=== PATIENT | female | born 1985 | race African-American/Black ===

== ENCOUNTER 2016-08-16 17:21 | Emergency (ER) | payer SELFPAY ==
[~2016-08-16] VITALS: Ht 170.2 cm; Wt 85.0 kg
[2016-08-16 17:22] VITALS: BP 159/95; PULSE 66; RESP 20; TEMP 98.5; O2SAT 100
--- NOTE | 2016-08-16 17:43 | PD ---
HPI Chief Complaint: Oral / Dental Pain or Problem Time Seen by Provider: 17:43 Travel History International Travel<30 days: No Contact w/Intl Traveler<30days: No Traveled to known affect area: No History of Present Illness HPI 31-year-old male presents to emergency Department with complaint of left upper tooth pain 4 weeks. Was previously treated with amoxicillin about 3-1/2 weeks ago with relief of symptoms. Tooth pain came back within the last week. She has not followed up with a dentist. She has a dental appointment when she gets back home to [place]; she is down here on vacation. Denies fever, vomiting. Denies facial edema, erythema. Has been taking ibuprofen, good powder, and other xqbu-ace-aizhnpa medications with minimal relief of pain. No known allergies. Has no medical complaints. No other modifying factors or associated signs and symptoms. PFSH Past Medical History ?: Not Social History Alcohol Use: Yes Tobacco Use: Yes Substance Use: No Allergies-Medications (Allergen,Severity, Reaction): Coded Allergies: No Known Allergies (Unverified , 08/16/16) Reported Meds & Prescriptions Reported Meds & Active Scripts Active Magic Mouthwash Pediatric/Adult Liq (Lidocaine/Diphenhydr/Alum/Mg/Simeth) 60 Ml Susp 5 Ml SWISH-SPIT Q3HR PRN Each 5mL contains: Diphenydramine 4.5mg, Viscous Lidocaine 2% 10mg, Maalox Advanced Regular Strength 2.7ml Peridex Liq (Chlorhexidine Gluconate (Mouth) Liq) 0.12% Soln 15 Ml SWISH-SPIT BID 10 Days Ibuprofen 800 Mg Tab 800 Mg PO Q6HR PRN Clindamycin (Clindamycin HCl) 150 Mg Cap 300 Mg PO Q8HR 10 Days Review of Systems Except as stated in HPI: all other systems reviewed are Neg Physical Exam Narrative GENERAL: Well-nourished, well-developed female patient, in no acute distress; afebrile, nontoxic-appearing SKIN: Warm and dry. HEAD: Atraumatic. Normocephalic. No facial edema, erythema, tenderness on palpation. No lymphadenopathy. EYES: Pupils equal and round. No scleral icterus. No injection or drainage. ENT: Mucosa pink and moist. Airway patent. MOUTH: Mucous membranes moist, no lesions, tongue and gums appear normal. Tooth #14 with tenderness on palpation. Surrounding gingiva is without erythema , edema, drainage. No obvious abscess noted. NECK: Trachea midline. No lymphadenopathy. CARDIOVASCULAR: Regular rate. RESPIRATORY: No accessory muscle use. GASTROINTESTINAL: Rounded. MUSCULOSKELETAL: No obvious deformities. No clubbing. No cyanosis. No edema. NEUROLOGICAL: Awake and alert. Oriented 3. No obvious cranial nerve deficits. Motor grossly within normal limits. Normal speech. PSYCHIATRIC: Appropriate mood and affect; insight and judgment normal. Data Data Last Documented VS Vital Signs Date Time Temp Pulse Resp B/P Pulse Ox O2 Delivery O2 Flow Rate FiO2 08/16/16 17:22 98.5 66 20 159/95 100 Room Air MDM Medical Decision Making Medical Screen Exam Complete: Yes Emergency Medical Condition: Yes Medical Record Reviewed: Yes Differential Diagnosis Toothache, dental abscess, dental caries Narrative Course 31-year-old female with tooth #14 dentalgia. Patient is afebrile and nontoxic- appearing. No obvious abscess noted. No facial edema or erythema. She was previously treated with amoxicillin about 3-1/2 weeks ago. Minimize, ibuprofen , Magic mouthwash, Peridex mouth rinse prescribed for home. Patient says she has an appointment with a dentist in [place] when she returns home. Instructed patient to follow up with dentist. Patient verbalizes understanding and agreement with treatment plan. Patient is medically cleared and stable for discharge. Discussed reasons to return to the emergency department. Instructed patient to follow up with primary care provider. Patient agrees with treatment plan. The patients vital signs are stable and the patient is stable for outpatient follow-up and treatment. Patient discharged home, stable and in no acute distress. Diagnosis Primary Impression: Dentalgia Referrals: Dentist Primary Care Physician Patient Instructions: Dental Abscess (ED), Dental Caries (ED), General Instructions, Toothache (ED) Additional Instructions: Complete full course of antibiotics Ibuprofen or Tylenol as directed and as needed to reduce pain and inflammation Use Magic mouthwash rinse as directed and as needed to decrease pain Use Peridex as directed for oral hygiene Warm or cool compresses to the affected area Follow-up with dentist Follow-up with primary care provider Return to emergency department immediately with worsening of symptoms Med/Other Pt SpecificInfo: Prescription(s) given Scripts Mqrtjyfithgoepv-Taqiwhyhq-Lfs-Alum-Simeth Liq (Magic Mouthwash Pediatric/Adult Liq)60 Ml Susp5 Ml SWISH-SPIT Q3HR PRN (PAIN SCALE 1 TO 10) #60 ML Ref 0 Each 5mL contains: Diphenydramine 4.5mg, Viscous Lidocaine 2% 10mg, Maalox Advanced Regular Strength 2.7ml Prov:Faiza Gallardo 08/16/16 Chlorhexidine Gluconate (Mouth) Liq (Peridex Liq)0.12% Soln15 Ml SWISH-SPIT BID 10 Days Ref 0 Prov:Faiza Gallardo 08/16/16 Ibuprofen 800 Mg [id number] Mg PO Q6HR PRN (PAIN) #30 TAB Ref 0 Prov:Faiza Gallardo 08/16/16 Clindamycin 150 Mg [id number] Mg PO Q8HR 10 Days Ref 0 Prov:Faiza Gallardo 08/16/16 Disposition: 01 DISCHARGE HOME Condition: Stable Faiza Gallardo August 16, 2016 17:43
[2016-08-16] MEDS ORDERED: PERI0.126 SWISH-SPIT (17:51)
[2016-08-16] MEDS ORDERED: CLIN1CAP5 PO (17:51)
[2016-08-16] MEDS ORDERED: IBUP800T23 PO (17:51)
[2016-08-16] MEDS ORDERED: MAGICPED SWISH-SPIT (17:51)
== END 2016-08-16 18:10 | disposition home or self-care (01) ==
LOC: NEPD 17:21
DX: K08.89 Other specified disorders of teeth and supporting structures (principal); Z72.0 Tobacco use
CPT/HCPCS: 99283